=== PATIENT | female | born 1990 | race Caucasian/White ===

== ENCOUNTER 2020-04-07 16:57 | Emergency (ER) | payer OTHER ==
[~2020-04-07] VITALS: Ht 188 cm; Wt 85.0 kg
--- NOTE | 2020-04-07 17:30 | PHYS DOC ---
General Adult EDM: Chief Complaint: HEADACHE HPI: HPI: Patient is a 29 year old female with no significant medical history who presents to the ED today complaining of right lower gum broken teeth and infection that she noted yesterday, she is also complaining of mild intermittent generalized headache mostly on the right side that has been going on since yesterday describes her headache as pins and needles. Denies any exacerbating or relieving factors to her headache. Denies any nausea vomiting. Denies this being the worst headache in her life (SPRING CAMACHO APRN) Review of Systems: Review of Systems: Constitutional: Denies fever or chills. [] Eyes: Denies change in visual acuity. [] HENT: Reports right lower gum broken teeth. Denies nasal congestion or sore throat. [] Respiratory: Denies cough or shortness of breath. [] Cardiovascular: Denies chest pain or edema. [] GI: Denies abdominal pain, nausea, vomiting, bloody stools or diarrhea. [] : Denies dysuria. [] Musculoskeletal: Denies back pain or joint pain. [] Integument: Denies rash. [] Neurologic: Reports headache, denies focal weakness or sensory changes. [] Psychiatric: Denies depression or anxiety. [] (SPRING CAMACHO APRN) Heart Score: Risk Factors: Risk Factors: DM, Current or recent (<one month) smoker, HTN, HLP, family history of CAD, obesity. Risk Scores: Score 0 - 3: 2.5% MACE over next 6 weeks - Discharge Home Score 4 - 6: 20.3% MACE over next 6 weeks - Admit for Clinical Observation Score 7 - 10: 72.7% MACE over next 6 weeks - Early Invasive Strategies (SPRING CAMACHO APRN) Current Medications: Current Medications Medications (Trade) Dose Ordered Sig/Ian Start Time Stop Time Status Last Admin Dose Admin Amoxicillin (Amoxil) 250 mg 1X ONCE 04/07/20 17:30 04/07/20 17:31 UNV Diphenhydramine HCl (Benadryl) 25 mg 1X ONCE 04/07/20 17:30 04/07/20 17:31 UNV Ketorolac Tromethamine (Toradol Im) 60 mg 1X ONCE 04/07/20 17:30 04/07/20 17:31 UNV Ondansetron HCl (Zofran Odt) 4 mg 1X ONCE 04/07/20 17:30 04/07/20 17:31 UNV Prednisone (Prednisone) 50 mg 1X ONCE 04/07/20 17:30 04/07/20 17:31 UNV (SPRING CAMACHO APRN) Allergies: Allergies: Allergies Coded Allergies Type Severity Reaction Last Updated Verified No Known Drug Allergies 04/07/20 No (SPRING CAMACHO APRN) Physical Exam: PE: Constitutional: Well developed, well nourished, no acute distress, non-toxic appearance. [] HENT: Normocephalic, atraumatic, bilateral external ears normal, oropharynx moist, no oral exudates, nose normal. [] Right lower gum molars and premolars are broken and decayed. Slight swelling noted on the right lower gum with no obvious fluctuance. Eyes: PERRLA, EOMI, conjunctiva normal, no discharge. [] Neck: Normal range of motion, no tenderness, supple, no stridor. [] Cardiovascular:Heart rate regular rhythm, no murmur [] Lungs & Thorax: Bilateral breath sounds clear to auscultation [] Abdomen: Bowel sounds normal, soft, no tenderness, no masses, no pulsatile masses. [] Skin: Warm, dry, no erythema, no rash. [] Back: No tenderness, no CVA tenderness. [] Extremities: No tenderness, no cyanosis, no clubbing, ROM intact, no edema. [] Neurologic: Alert and oriented X 3, normal motor function, normal sensory function, no focal deficits noted. Cranial nerves II through XII intact Psychologic: Affect normal, judgement normal, mood normal. [] (SPRING CAMACHO APRN) EKG: EKG: [] (SPRING CAMACHO APRN) Radiology/Procedures: Radiology/Procedures: [] (SPRING CAMACHO APRN) Course & Med Decision Making: Course & Med Decision Making Pertinent Labs and Imaging studies reviewed. (See chart for details) This is a 29-year-old female patient presenting to the ED today with dental infection and a headache, will be discharged with amoxicillin for her infection and recommended follow-up with a dentist. Given prescription for diclofenac for her headache. (SPRING CAMACHO APRN) Kp Disclaimer: Dragon Disclaimer: This electronic medical record was generated, in whole or in part, using a voice recognition dictation system. (SPRING CAMACHO APRN) Departure Departure Impression: Primary Impression: Dentalgia Additional Impressions: Abscess, dental Headache Disposition: HOME, SELF-CARE Condition: STABLE Referrals: NO PCP (PCP) Please follow up with a dentist as soon as you can Patient Instructions: Dental Abscess, Headache, FAQs Additional Instructions: You were seen for headache and dental infection. Please take the prescribed antibiotics until completed. Follow-up with a dentist as soon as you can. Scripts Chlorhexidine Gluconate (PERIDEX) 15 Ml Mouthwash 15 ML PO BID, #946 ML 0 Refills Prov: SPRING CAMACHO APRN 04/07/20 Diclofenac Potassium (DICLOFENAC POTASSIUM) 50 Mg Tablet 1 TAB PO BID, #60 TAB 1 Refill Prov: SPRING CAMACHO APRN 04/07/20 Prednisone (PREDNISONE) 50 Mg Tablet 1 TAB PO DAILY, #5 TAB Prov: SPRING CAMACHO APRN 04/07/20 Amoxicillin (AMOXICILLIN) 875 Mg Tablet 1 TAB PO BID, #20 TAB Prov: SPRING CAMACHO APRN 04/07/20 Attending Signature Attending Signature I have reviewed the PA/ROLL MECHANIC's note and plan of care. I was available for consultation as needed during the patient's visit in the emergency department. I agree with the clinical impression, plan, and disposition. (KIMBERLY BULLOCK DO) SPRING CAMACHO APRN April 07, 2020 17:30 KIMBERLY BULLOCK DO April 08, 2020 13:28
[2020-04-07] MEDS ORDERED: AMOX875T PO (17:35)
[2020-04-07] MEDS ORDERED: CHLO15MO2 PO (17:35)
[2020-04-07] MEDS ORDERED: PRED50TA PO (17:35)
[2020-04-07] MEDS ORDERED: DICL50TA2 PO (17:35)
[2020-04-07 17:36] VITALS: BP 135/81
[2020-04-07] MEDS: ONDANSETRON ODT 4 MG TAB.RAPDIS. PO ONE (17:59)
[2020-04-07] MEDS: diphenhydrAMINE HCL 25 MG CAPSULE PO ONE (17:59)
[2020-04-07] MEDS: AMOXICILLIN 250 MG CAPSULE. PO ONE ×2 (17:59)
[2020-04-07] MEDS: predniSONE 10 MG TABLET PO ONE (17:59)
[2020-04-07] MEDS: KETOROLAC 60 MG/2 ML VIAL. IM ONE (18:00)
== END 2020-04-07 18:06 | disposition home or self-care (01) ==
LOC: EDBD 16:57 → ER 16:57
DX: K04.7 Periapical abscess without sinus (principal); R51 Headache; K08.89 Other specified disorders of teeth and supporting structures
CPT/HCPCS: 81025; 96372; 99284; J1885; J7512; Q0162; Q0163